=== PATIENT | male | born 1935 | race Caucasian/White ===

== ENCOUNTER 2020-03-21 17:03 | Emergency (ER) | payer MEDICARE, BC ==
--- NOTE | 2020-03-21 19:27 | EDM.PDOC ---
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 The patient had oral surgery on Monday. He developed bleeding yesterday and was seen by the oral surgeon in [place] who recommended teabags and gauze packing. The patient has been doing that but notes persistent bleeding. He was diagnosed with a DVT last Monday and was started on Lovenox. He took his first dose of C oumadin on Monday evening. The patient denies chest pain or shortness of breath. He denies lightheadedness. - Related Data Allergies Allergy/AdvReac Type Severity Reaction Status Date / Time No Known Allergies Allergy Verified 03/21/20 17:42 Home Meds: Home Meds Enoxaparin Sodium [Lovenox] 100 mg SQ BID 03/21/20 [History] Simvastatin 20 mg PO DAILY 03/21/20 [History] Triamterene/Hydrochlorothiazid [Triamterene-HCTZ 37.5-25 MG] 1 tab PO DAILY 03/21/20 [History] Warfarin Sodium [Jantoven] 5 mg PO DAILY 03/21/20 [History] allopurinoL [Zyloprim] 300 mg PO DAILY 03/21/20 [History] atenoloL [Atenolol] 50 mg PO DAILY 03/21/20 [History] captopriL [Capoten] 50 mg PO BID 03/21/20 [History] Past Medical History Cardiovascular History: Reports: Blood Clots/VTE/DVT, High Cholesterol, Hypertension Oncologic (Cancer) History: Reports: Leukemia - Past Surgical History GI Surgical History: Reports: Appendectomy, Hernia Repair/Other Social & Family History - Tobacco Use Smoking Status *Q: Never Smoker - Alcohol Use Days Per Week of Alcohol Use: 7 Number of Drinks Per Day: 1 Total Drinks Per Week: 7 - Recreational Drug Use Recreational Drug Use: No ED ROS ENT - Review of Systems Review Of Systems: See Below Constitutional: Reports: No Symptoms HEENT: Reports: Other (Bleeding from the mouth) Respiratory: Reports: No Symptoms Cardiovascular: Denies: Chest Pain, Syncope GI/Abdominal: Denies: Nausea, Vomiting Neurological: Denies: Weakness ED EXAM, ENT - Physical Exam Exam: See Below Exam Limited By: No Limitations General Appearance: Alert, WD/WN Mouth/Throat: Other Course - Vital Signs Text/Narrative:: This patient who is anticoagulated at a tooth extraction on Monday. He had bleeding today and came into the ED for evaluation. His hemoglobin is normal. His INR is subtherapeutic. The area around the oral surgical site was injected with 1% Xylocaine with epinephrine using the periosteally approach. I then soaked TXA onto a cotton gauze in place that next to the bleeding area. He had good hemostasis and his vital signs remained stable. He was instructed remove the gauze when he reached home. He should eat a soft diet through tomorrow. He will follow-up with his oral surgeon as needed. Last Recorded V/S: Last Vital Signs Temp 36.5 C 03/21/20 17:53 Pulse 63 03/21/20 18:52 Resp 12 03/21/20 17:53 BP 163/76 H 03/21/20 18:52 Pulse Ox 96 03/21/20 17:53 - Orders/Labs/Meds Labs: Laboratory Tests 03/21/20 03/21/20 Range/Units 19:23 19:23 WBC 26.9 H (4.5-11.0) K/uL RBC 4.31 (4.30-5.90) M/uL Hgb 14.4 (12.0-15.0) g/dL Hct 43.0 (40.0-54.0) % MCV 100 H (80-98) fL MCH 33 H (27-31) pg MCHC 34 (32-36) % Plt Count 152 (150-400) K/uL Add Manual Diff Yes Neutrophils % (Manual) 21 L (36-66) % Lymphocytes % (Manual) 70 H (24-44) % Monocytes % (Manual) 9 H (2-6) % PT 14.1 H (9.5-12.0) sec INR 1.33 H (0.80-1.20) Meds: Medications Discontinued Medications Generic Name Dose Route Start Last Admin Trade Name Freq PRN Reason Stop Dose Admin Lidocaine/Epinephrine 2 ml 03/21/20 20:15 03/21/20 20:37 Xylocaine 1% With Epinephrine 1:100,000 INFILT 03/21/20 20:16 2 ml ONETIME ONE Administration Tranexamic Acid 500 mg 03/21/20 20:48 03/21/20 20:59 Cyklokapron TOP 03/21/20 20:49 500 mg ONETIME ONE Administration Departure - Departure Time of Disposition: 21:01 Disposition: DC/Tfer to Hospice - Home 50 Condition: Good Clinical Impression: Mouth bleeding - Discharge Information *PRESCRIPTION DRUG MONITORING PROGRAM REVIEWED*: No *COPY OF PRESCRIPTION DRUG MONITORING REPORT IN PATIENT EDILSON: No Referrals: Jace Cantor NP [Primary Care Provider] - Forms: ED Department Discharge Additional Instructions: Remove the gauze when you get home. Follow-up with your dentist as needed. Eat a soft diet through tomorrow. Continue all your current medications. Sepsis Event Note (ED) - Evaluation Sepsis Screening Result: No Definite Risk - Focused Exam Vital Signs: Vital Signs Temp Pulse Resp BP Pulse Ox 03/21/20 18:52 63 163/76 H 03/21/20 17:56 165/72 H 03/21/20 17:53 36.5 C 69 12 177/75 H 96 03/21/20 17:35 36.5 C 69 12 177/75 H 96
[2020-03-21] MEDS ORDERED: Lidocaine 1% with EPINEPHrine 1:100,000 50 ML MDV INFILT ONE (20:15)
== END 2020-03-21 21:26 | disposition hospice, home (50) ==
LOC: JP.ED 17:03
DX: K13.79 Other lesions of oral mucosa (principal); E78.00 Pure hypercholesterolemia, unspecified; I10 Essential (primary) hypertension; Z79.01 Long term (current) use of anticoagulants; Z79.899 Other long term (current) drug therapy; Z86.718 Personal history of other venous thrombosis and embolism
CPT/HCPCS: 36415; 85025; 85610; 99283